=== PATIENT | female | born 1990 | race Caucasian/White ===

== ENCOUNTER 2022-07-16 10:05 | Day surgery (SDC) | payer MEDICAID ==
[~2022-07-16] VITALS: Ht 162.6 cm; Wt 110.7 kg
[2022-07-16 10:27] LABS: HCG,QUAL RESULT NEGATIVE (NEGATIVE)
[2022-07-16] MEDS ORDERED: MIDAZOLAM HCL 2 MG/2 ML VIAL (VERSED) ONE (11:44)
[2022-07-16] MEDS ORDERED: ONDANSETRON HCL 4 MG/2 ML VIAL ONE (11:44)
[2022-07-16] MEDS ORDERED: WATER FOR IRRIGATION,STERILE 1,000 ML IRRIG.SOLN IR ONE (11:44)
[2022-07-16] MEDS ORDERED: NS IRRIG SOLN 1000 ML IR ONE (11:44)
[2022-07-16] MEDS ORDERED: fentaNYL CITRATE/PF 100 MCG/2 ML AMP ONE (11:44)
[2022-07-16] MEDS ORDERED: LR 1,000 ML IV.SOLN IV ONE (11:44)
[2022-07-16] MEDS ORDERED: SEVOFLURANE 15 MIN GAS INH ONE (11:44)
[2022-07-16] MEDS ORDERED: PROPOFOL 200MG/ 20ML VIAL (DIPRIVAN) IV ONE (11:44)
[2022-07-16] MEDS ORDERED: DEXAMETHASONE SOD PHOSPHATE 4 MG/ML VIAL ONE (11:44)
[2022-07-16] MEDS ORDERED: BUPIVACAINE /PF 0.5% 30 ML VIAL ONE (11:44)
[2022-07-16] MEDS ORDERED: KETOROLAC TROMETHAMINE 30 MG VIAL ONE ×2 (11:44→14:05)
[2022-07-16] MEDS ORDERED: METOCLOPRAMIDE HCL 10 MG/2 ML VIAL ONE (11:44)
[2022-07-16] MEDS ORDERED: SUGAMMADEX SODIUM 200 MG/2 ML VIAL IV ONE (11:44)
[2022-07-16] MEDS ORDERED: MEPERIDINE HCL/PF 25 MG/ML DISP.SYRIN IVP PRN (12:15)
[2022-07-16] MEDS ORDERED: KETOROLAC TROMETHAMINE 30 MG VIAL IVP PRN (12:15)
[2022-07-16] MEDS ORDERED: HYDROmorphone 1 MG/ML INJ. CARTRIDGE IVP PRN (12:15)
[2022-07-16] MEDS ORDERED: ONDANSETRON HCL 4 MG/2 ML VIAL IVP PRN (12:15)
[2022-07-16] MEDS ORDERED: LR 1,000 ML IV SCH (12:15)
[2022-07-16 16:04] VITALS: BP_SYST 107
== END 2022-07-16 16:05 | disposition home or self-care (01) ==
LOC: SDS 10:05 → SMU 10:06 → SDS 16:05
PROVIDERS: ATTEND Obstetrics & Gynecology
DX: Z30.2 Encounter for sterilization (principal); J45.909 Unspecified asthma, uncomplicated; E66.01 Morbid (severe) obesity due to excess calories; Z68.41 Body mass index [BMI] 40.0-44.9, adult
CPT/HCPCS: 58670; 84703; J3490 ×2; J1100; J1885; J2765; J3465; J2405; J2704; J3010; J7120